=== PATIENT | male | born 1990 | race African-American/Black ===

== ENCOUNTER 2022-09-16 13:52 | Emergency (ER) | payer MEDICAID, OTHER ==
[~2022-09-16] VITALS: Ht 180.3 cm; Wt 109.0 kg
[2022-09-16] MEDS ORDERED: HYDROCODONE/ACETAMINOPHEN 5/325MG TABLET PO ONE (14:30)
[2022-09-16] MEDS ORDERED: MORPHINE SULFATE 4 MG/ML CPJ (NOT FOR IM USE) IV STA (15:09)
[2022-09-16] MEDS ORDERED: ONDANSETRON HCL 4MG/2ML INJ IV STA (15:09)
[2022-09-16] MEDS ORDERED: PIPERACILLIN/TAZ 3.375G PREMIX 50 ML IV NR (15:15)
[2022-09-16] MEDS ORDERED: SODIUM CHLORIDE 0.9% 1,000 ML IV ONE (15:15)
[2022-09-16] MEDS ORDERED: PIPERACILLIN/TAZOBACTAM 3.375GM/50ML PREMIX IV ONE (15:15)
[2022-09-16] MEDS ORDERED: TETANUS, DIPHTHERIA, PERTUSSIS VAC/PF 0.5ML (>10YR OLD) IM ONE (16:30)
[2022-09-16] MEDS ORDERED: IBUP-2029 MT (16:38)
[2022-09-16] MEDS ORDERED: HYDR-4001 MT ×3 (16:38→17:17)
[2022-09-16] MEDS ORDERED: AMOX1TAB16 MT ×2 (16:38→17:18)
[2022-09-16 17:31] VITALS: BP 126/84
== END 2022-09-16 17:34 | disposition home or self-care (01) ==
LOC: ER 13:52
DX: S02.609A Fracture of mandible, unspecified, initial encounter for closed fracture (principal); Y08.89XA Assault by other specified means, initial encounter; Y93.89 Activity, other specified; Y92.89 Other specified places as the place of occurrence of the external cause; Y99.8 Other external cause status; Z20.822 Contact with and (suspected) exposure to COVID-19
CPT/HCPCS: 70450; 70486; 87426; 90471; 90715; 96365; 96375; 99284; C9803; J2270; J2405; J2543; J7030